=== PATIENT | female | born 1950 | race Caucasian/White ===

== ENCOUNTER 2018-01-10 18:09 | Emergency (ER) | payer MEDICARE, OTHER ==
[2018-01-10 19:37] LABS: KETONE, URINE AUTO RFX 1+ mg/dL (NEGATIVE); LEUKOCYTE ESTERASE UR AUTO RFX NEGATIVE (NEGATIVE); NITRITE, URINE AUTO RFX NEGATIVE (NEGATIVE); RBC, URINE AUTO RFX 3 /HPF (0-3); SPECIFIC GRAVITY UR AUTO RFX 1.015 (1.002-1.035); SQUAM EPITHELIAL CELL UR AURFX 0 /HPF (0-6); WBC, URINE AUTO RFX 2 /HPF (0-3)
[2018-01-10 19:42] LABS: HEMATOCRIT 35.5 % (36.0-47.0); HEMOGLOBIN 11.9 g/dl (12.0-15.5); MEAN CORPUSCULAR HEMOGLOBIN 26.9 pg (27.0-33.0); MEAN CORPUSCULAR HGB CONC 33.5 g/dl (32.0-36.5); MEAN CORPUSCULAR VOLUME 80.3 fl (80.0-96.0); PLATELET COUNT, AUTOMATED 114 10^3/uL (150-450); RED BLOOD COUNT 4.42 10^6/uL (4.00-5.40); RED CELL DISTRIBUTION WIDTH 14.3 % (11.5-14.5); WHITE BLOOD COUNT 4.7 10^3/uL (4.0-10.0)
[2018-01-10 19:43] LABS: ADD MANUAL DIFFER YES; DIFF SLIDE NUMBER 320; POSITIVE DIFF POS FLAG
[2018-01-10 19:55] LABS: ANION GAP 8 MEQ/L (8-16); BLOOD UREA NITROGEN 15 MG/DL (7-18); CALCIUM LEVEL 8.8 MG/DL (8.8-10.2); CARBON DIOXIDE LEVEL 23 MEQ/L (21-32); CHLORIDE LEVEL 107 MEQ/L (98-107); CREATININE FOR GFR 1.09 MG/DL (0.55-1.30); GLOMERULAR FILTRATION RATE 53.6 (>45); GLUCOSE, FASTING 225 MG/DL (70-100); SODIUM LEVEL 138 MEQ/L (136-145)
[2018-01-10] MEDS ORDERED: ISOVUE-370 76% 100ML VIAL (Q9967) As Ordered (19:57)
[2018-01-10 20:13] LABS: INFLUENZA A AMPLIFICATION NEGATIVE (NEGATIVE); INFLUENZA B AMPLIFICATION NEGATIVE (NEGATIVE)
[2018-01-10] MEDS: NS 1,000 ML IV ×2 (20:30→22:04)
[2018-01-10] MEDS: HumaLOG INSULIN (NovoLOG) PER UNIT SC (20:37)
[2018-01-10 20:41] LABS: ACETONE/KETONE 8.49 MG/DL (<2.81)
[2018-01-10 20:42] LABS: BANDS 1 % (< 11); EOSINOPHILS 1 % (0-5); LYMPHOCYTES 2 % (16-52); MONOCYTES 3 % (0-8); NEUTROPHILS 93 % (35-75)
[2018-01-10 20:43] LABS: PLATELET ESTIMATE DECREASED (NORMAL); TOXIC VACUOLATION 1+
[2018-01-10 21:53] LABS: OSMOLALITY SERUM 291 MOSM/KG (280-301)
[2018-01-10] MEDS: ONDANSETRON 4MG/2ML VIAL (J2405) IV (22:04)
[2018-01-10 22:08] LABS: VENOUS HCO3 21.8 MEQ/L (23.0-27.0); VENOUS O2 SATURATION 75.1 % (60.0-80.0); VENOUS PARTIAL PRESSURE O2 38.5 mmHg (30.0-50.0); VENOUS PH 7.424 UNITS (7.330-7.430); VENOUS STANDARD HCO3 22.3 MEQ/L; VENOUS TOTAL CO2 22.8 MEQ/L (24.0-28.0)
[2018-01-10] MEDS: ONDANSETRON 4 MG ORAL DISINTEGRATING TAB (Q0162 PER 1MG) PO (22:45)
== END 2018-01-10 23:03 | disposition home or self-care (01) ==
LOC: M ED 18:09
DX: E86.0 Dehydration (principal); E10.9 Type 1 diabetes mellitus without complications; I11.9 Hypertensive heart disease without heart failure; D64.9 Anemia, unspecified; R19.06 Epigastric swelling, mass or lump; M19.90 Unspecified osteoarthritis, unspecified site; I50.30 Unspecified diastolic (congestive) heart failure; Z87.19 Personal history of other diseases of the digestive system; Z87.440 Personal history of urinary (tract) infections; Z79.899 Other long term (current) drug therapy; Z79.82 Long term (current) use of aspirin; Z79.4 Long term (current) use of insulin
CPT/HCPCS: J2405

== ENCOUNTER → 2021-11-12 | Outpatient (REF) | payer MEDICARE, OTHER ==
[~2021-11-12] MED LIST: ACET65TA OR; ASPI81TA83 OR; AVAP300T OR; CALCIUM/VITAMIN D PO; HUMALOG SC; INSULANT SC; NORV5TAB OR; VIT D 2000 PO
== END ==
LOC: M LAB REF 12:10
PROVIDERS: ATTEND Internal Medicine
DX: M54.50 Low back pain, unspecified (principal); N39.0 Urinary tract infection, site not specified